=== PATIENT | female | born 1965 | race Caucasian/White ===

== ENCOUNTER 2017-12-23 03:00 | Emergency (ER) | payer OTHER ==
[~2017-12-23] VITALS: Ht 167.6 cm; Wt 88.5 kg
[~2017-12-23 03:00] MED LIST: ASMANEX220 MC1 INH; GLUCOPHAGE XR750 MG PO; HYDROCHLOROTHIA25 M2 PO; MOTION RELIEF25 MG PO; ONDANSETRON HCL4 M2 PO; PRINIVIL20 MG PO; PROAIR HFA8.5 GM INH
[2017-12-23 04:22] LABS: ABSOLUTE EOSINOPHILS 0.3 thou/uL (0.0-0.7); ABSOLUTE LYMPHOCYTES 2.2 thou/uL (0.8-5.3); ABSOLUTE MONOCYTES 0.6 thou/uL (0.0-1.2); ABSOLUTE NEUTROPHILS 7.2 thou/uL (1.6-8.1); BASOPHILS 0.3 %; EOSINOPHILS 3.2 %; HEMATOCRIT 42.6 % (37.0-47.0); HEMOGLOBIN 14.5 gm/dL (12.0-15.0); LYMPHOCYTES 21.4 %; MCV 88.1 fL (80.0-100.0); MPV 9.6 fl. (7.2-11.1); NUCLEATED RBCS 0 /100WBC; PLATELET COUNT* 252 thou/uL (150-400); POLYS 69.1 %; RBC 4.83 mil/uL (4.20-5.00); RDW-CV 13.1 % (10.5-14.5); WBC 10.4 thou/uL (4.0-11.0)
[2017-12-23 04:27] LABS: CREATININE 0.9 mg/dL (0.6-1.3); POTASSIUM 3.1 mmol/L (3.5-5.1)
[2017-12-23 04:34] LABS: ALBUMIN 4.1 g/dL (3.4-5.0); TOTAL BILIRUBIN 0.4 mg/dL (<0.1-1.0); TOTAL PROTEIN 7.4 g/dL (6.4-8.2)
[2017-12-23] MEDS ORDERED: PREDNISONE50 MG PO (04:50)
[2017-12-23 05:10] VITALS: BP 126/85
== END 2017-12-23 05:11 | disposition home or self-care (01) ==
LOC: M.ERS 03:00
PROVIDERS: Personal Emergency Response Attendant
DX: L50.9 Urticaria, unspecified (principal); J45.909 Unspecified asthma, uncomplicated; Z88.1 Allergy status to other antibiotic agents; Z88.5 Allergy status to narcotic agent; Z88.0 Allergy status to penicillin

== ENCOUNTER 2020-07-13 18:15 | Emergency (ER) | payer OTHER ==
[~2020-07-13] VITALS: Ht 170.2 cm; Wt 86.2 kg
[~2020-07-13 18:15] MED LIST changes: +PREDNISONE50 MG PO
[2020-07-13] MEDS ORDERED: SYMBICORT160 MCG/4. INH (18:28)
[2020-07-13] MEDS ORDERED: NORCO5 PO (20:04)
[2020-07-13] MEDS ORDERED: MEDROLDOSEPACK PO ×2 (20:04→20:20)
[2020-07-13] MEDS ORDERED: NAPROSYN500 MG PO ×2 (20:04→20:20)
[2020-07-13] MEDS ORDERED: FLEXERIL PO ×2 (20:04→20:20)
[2020-07-13] MEDS ORDERED: HYDROCODON-ACE1 EAC7 PO (20:27)
[2020-07-13 20:39] VITALS: BP 132/79
== END 2020-07-13 20:39 | disposition home or self-care (01) ==
LOC: M.ERS 18:15
DX: M54.12 Radiculopathy, cervical region (principal); Z88.1 Allergy status to other antibiotic agents; Z88.0 Allergy status to penicillin; Z88.5 Allergy status to narcotic agent; Z79.899 Other long term (current) drug therapy

== ENCOUNTER → 2020-07-21 | Outpatient (CLI) | payer OTHER ==
[~2020-07-21] MED LIST changes: +FLEXERIL PO; +HYDROCODON-ACE1 EAC7 PO; +MEDROLDOSEPACK PO; +NAPROSYN500 MG PO; +NORCO5 PO; +SYMBICORT160 MCG/4. INH
== END ==
LOC: M.MRI 13:54
PROVIDERS: ATTEND Family Medicine
DX: M54.12 Radiculopathy, cervical region (principal); R93.7 Abnormal findings on diagnostic imaging of other parts of musculoskeletal system; E11.9 Type 2 diabetes mellitus without complications

== ENCOUNTER → 2020-09-08 | Outpatient (CLI) | payer OTHER ==
[2020-09-09 12:07] LABS: INSULIN 21.1 uIU/mL (2.6-24.9)
== END ==
LOC: M.LAB 08:19
PROVIDERS: ATTEND Internal Medicine Endocrinology, Diabetes & Metabolism
DX: R73.09 Other abnormal glucose (principal)